=== PATIENT | female | born 1995 | race Caucasian/White ===

== ENCOUNTER 2017-11-12 16:24 | Emergency (ER) | payer BC ==
--- NOTE | 2017-11-12 17:09 | EDM.PDOC ---
ED HPI GENERAL MEDICAL PROBLEM - General Chief Complaint: Abdominal Pain Stated Complaint: BLOOD IN STOOL Time Seen by Provider: 11/12/17 16:46 Source of Information: Reports: Patient History Limitations: Reports: No Limitations - History of Present Illness INITIAL COMMENTS - FREE TEXT/NARRATIVE: Patient is a 22-year-old female who presents ED complaining of bleeding from the rectum with bowel movement. States this a.m. has had 2 episodes of diarrhea. First episode of diarrhea she had blood with wiping. There was scant at that time. The next time she had to utilize the bathroom she had some diarrhea but noticed more blood present. There is no pain with wiping. No pain with having a bowel movement. She has no history of hemorrhoids or anal fissures. She has no prior history as such. She states her stomach feels upset gurgly. There is no pain present. No recent sick exposures, ingestion of bad or questionable food, or out of country travel. She has no acid reflux. No nausea no vomiting, no dysuria, no fever, or change in appetite. Denies recent antibiotic use. Patient has no past medical history and is currently taking no medications. Patient does not smoke, alcohol use rarely, recreational drug use none stated. - Related Data Allergies Allergy/AdvReac Type Severity Reaction Status Date / Time amoxicillin Allergy Other Verified 11/12/17 16:37 codeine Allergy Lethargy Verified 11/12/17 16:37 Home Meds: Home Meds . [No Known Home Meds] 11/12/17 [History] Past Medical History - Past Health History Medical/Surgical History: Denies Medical/Surgical History Social & Family History - Tobacco Use Smoking Status *Q: Never Smoker - Caffeine Use Caffeine Use: Reports: Coffee, Soda - Recreational Drug Use Recreational Drug Use: No ED ROS GENERAL - Review of Systems Review Of Systems: See Below Constitutional: Reports: No Symptoms HEENT: Reports: No Symptoms Respiratory: Reports: No Symptoms Cardiovascular: Reports: No Symptoms GI/Abdominal: Reports: Abdominal Pain (No pain to this uncomfortable gurgling sensation present.), Bloody Stool, Diarrhea (2 episodes of loose stools), Vomiting. Denies: Constipation, Decreased Appetite, Distension, Flatus, Hematemesis : Reports: No Symptoms Musculoskeletal: Reports: No Symptoms Skin: Reports: No Symptoms Neurological: Reports: No Symptoms Psychiatric: Reports: No Symptoms ED EXAM, GI/ABD - Physical Exam Exam: See Below Exam Limited By: No Limitations General Appearance: Alert, WD/WN, No Apparent Distress Ears: Hearing Grossly Normal Nose: Normal Inspection Throat/Mouth: Normal Inspection, Normal Oropharynx, Normal Voice, No Airway Compromise Neck: Normal Inspection, Supple Respiratory/Chest: No Respiratory Distress, Lungs Clear, Normal Breath Sounds, No Accessory Muscle Use, Chest Non-Tender Cardiovascular: Normal Peripheral Pulses, Regular Rate, Rhythm, No Murmur GI/Abdominal Exam: Normal Bowel Sounds, Soft, Non-Tender, No Distention, Abnormal Bowel Sounds (Hyperactive) Rectal (Female) Exam: Heme - Stool. No: Hemorrhoids, Rectal Fissure, Tenderness Back Exam: Normal Inspection Extremities: Normal Inspection Neurological: Alert, Oriented, CN II-XII Intact, Normal Cognition, No Motor/ Sensory Deficits Psychiatric: Normal Affect, Normal Mood Skin Exam: Warm, Dry, Intact, Normal Color, No Rash Course - Vital Signs Last Recorded V/S: Last Vital Signs Temp 98.7 F 11/12/17 16:35 Pulse 128 H 11/12/17 16:35 Resp 20 11/12/17 16:35 BP 144/96 H 11/12/17 16:35 Pulse Ox 100 11/12/17 16:35 - Orders/Labs/Meds Labs: Laboratory Tests 11/12/17 11/12/17 11/12/17 Range/Units 17:00 17:15 17:15 WBC 15.39 H (3.98-10.04) K/mm3 RBC 4.96 (3.98-5.22) M/mm3 Hgb 14.2 (11.2-15.7) gm/L Hct 41.8 (34.1-44.9) % MCV 84.3 (79.4-94.8) fl MCH 28.6 (25.6-32.2) pg MCHC 34.0 (32.2-35.5) g/dl RDW Std Deviation 38.9 (36.4-46.3) fL Plt Count 357 (182-369) K/mm3 MPV 10.3 (9.4-12.3) fl Neut % (Auto) 63.7 (34.0-71.1) % Lymph % (Auto) 26.1 (19.3-51.7) % Gibson % (Auto) 7.9 (4.7-12.5) % Eos % (Auto) 1.5 (0.7-5.8) Baso % (Auto) 0.3 (0.1-1.2) % Neut # (Auto) 9.81 H (1.56-6.13) K/mm3 Lymph # (Auto) 4.02 H (1.18-3.74) K/mm3 Gibson # (Auto) 1.21 H (0.24-0.36) K/mm3 Eos # (Auto) 0.23 (0.04-0.36) K/mm3 Baso # (Auto) 0.05 (0.01-0.08) K/mm3 PT (8.0-13.0) SECONDS INR APTT (22-36) SECONDS Sodium 143 (136-145) mEq/L Potassium 3.5 (3.5-5.1) mEq/L Chloride 107 (98-107) mEq/L Carbon Dioxide 23 (21-32) mEq/L Anion Gap 16.5 H (5-15) BUN 9 (7-18) mg/dL Creatinine 0.8 (0.55-1.02) mg/dL Est Cr Clr Drug Dosing 81.82 mL/min Estimated GFR (MDRD) > 60 (>60) mL/min BUN/Creatinine Ratio 11.3 L (14-18) Glucose 111 H (74-106) mg/dL Calcium 9.2 (8.5-10.1) mg/dL Total Bilirubin 0.2 (0.2-1.0) mg/dL AST 13 L (15-37) U/L ALT 16 (14-59) U/L Alkaline Phosphatase 110 (46-116) U/L C-Reactive Protein < 0.2 (<1.0) mg/dL Total Protein 7.7 (6.4-8.2) g/dl Albumin 3.8 (3.4-5.0) g/dl Globulin 3.9 gm/dL Albumin/Globulin Ratio 1.0 (1-2) Lipase 198 (73-393) U/L HCG, Qual (NEGATIVE) Urine Color Yellow (Yellow) Urine Appearance Clear (Clear) Urine pH 7.0 (5.0-8.0) Ur Specific [place] 1.015 (1.005-1.030) Urine Protein Negative (Negative) Urine Glucose (UA) Negative (Negative) Urine Ketones Negative (Negative) Urine Occult Blood Negative (Negative) Urine Nitrite Negative (Negative) Urine Bilirubin Negative (Negative) Urine Urobilinogen 0.2 (0.2-1.0) Ur Leukocyte Esterase Trace H (Negative) Urine RBC 0-5 (0-5) /hpf Urine WBC 0-5 (0-5) /hpf Ur Epithelial Cells 0-5 (0-5) /hpf Urine Bacteria Few (FEW) /hpf Urine Mucus Not seen (FEW) /hpf C.difficile [id number] C. difficile Tox (PCR) 11/12/17 11/12/17 11/12/17 Range/Units 17:15 17:15 17:55 WBC (3.98-10.04) K/mm3 RBC (3.98-5.22) M/mm3 Hgb (11.2-15.7) gm/L Hct (34.1-44.9) % MCV (79.4-94.8) fl MCH (25.6-32.2) pg MCHC (32.2-35.5) g/dl RDW Std Deviation (36.4-46.3) fL Plt Count (182-369) K/mm3 MPV (9.4-12.3) fl Neut % (Auto) (34.0-71.1) % Lymph % (Auto) (19.3-51.7) % Gibson % (Auto) (4.7-12.5) % Eos % (Auto) (0.7-5.8) Baso % (Auto) (0.1-1.2) % Neut # (Auto) (1.56-6.13) K/mm3 Lymph # (Auto) (1.18-3.74) K/mm3 Gibson # (Auto) (0.24-0.36) K/mm3 Eos # (Auto) (0.04-0.36) K/mm3 Baso # (Auto) (0.01-0.08) K/mm3 PT 10.9 (8.0-13.0) SECONDS INR 1.00 APTT 30 (22-36) SECONDS Sodium (136-145) mEq/L Potassium (3.5-5.1) mEq/L Chloride (98-107) mEq/L Carbon Dioxide (21-32) mEq/L Anion Gap (5-15) BUN (7-18) mg/dL Creatinine (0.55-1.02) mg/dL Est Cr Clr Drug Dosing mL/min Estimated GFR (MDRD) (>60) mL/min BUN/Creatinine Ratio (14-18) Glucose (74-106) mg/dL Calcium (8.5-10.1) mg/dL Total Bilirubin (0.2-1.0) mg/dL AST (15-37) U/L ALT (14-59) U/L Alkaline Phosphatase (46-116) U/L C-Reactive Protein (<1.0) mg/dL Total Protein (6.4-8.2) g/dl Albumin (3.4-5.0) g/dl Globulin gm/dL Albumin/Globulin Ratio (1-2) Lipase (73-393) U/L HCG, Qual Negative (NEGATIVE) Urine Color (Yellow) Urine Appearance (Clear) Urine pH (5.0-8.0) Ur Specific [place] (1.005-1.030) Urine Protein (Negative) Urine Glucose (UA) (Negative) Urine Ketones (Negative) Urine Occult Blood (Negative) Urine Nitrite (Negative) Urine Bilirubin (Negative) Urine Urobilinogen (0.2-1.0) Ur Leukocyte Esterase (Negative) Urine RBC (0-5) /hpf Urine WBC (0-5) /hpf Ur Epithelial Cells (0-5) /hpf Urine Bacteria (FEW) /hpf Urine Mucus (FEW) /hpf C.difficile [id number] Presumptive negative C. difficile Tox (PCR) Negative - Re-Assessments/Exams Free Text/Narrative Re-Assessment/Exam: Picture provided by patient from last p.m. did show mild amount of blood within the toilet. Will obtain basic labs and studies include: CBC, chem 14, CRP, lipase, coag studies, UA, stool wbc's, Hemoccult testing, hCG, and 2 view of the abdomen flat and upright. X-ray of the abdomen did not reveal any concerning findings. 11/12/17 17:15 Hemoccult was negative for blood. 1756 Labs reviewed: White blood cell count 15.39, hemoglobin 14.2, platelet count 357, neutrophil percentage and lymphocyte percentage within normal limits. Neutrophil #9.81 which is high, lymphocyte #4.0 to which is high. C14 is essentially normal. CRP less than 0.2. Lipase 198. Stool WBCs were negative. C. difficile has been ordered. 1800 Reassessment, patient states with last bowel movement was low volume diarrhea. No blood present. 11/12/17 18:37 HCG negative. UA pending. 11/12/17 18:51 Reassessment, patient has no complaints. No additional episodes of diarrhea. Patient will be discharged home. Patient will be notified if remaining labs comeback positive. Will discharge patient home with instructions as documented. C-diff negative. Departure - Departure Time of Disposition: 18:55 Disposition: Home, Self-Care 01 Condition: Good Clinical Impression: Bright red blood per rectum, Stomach discomfort Diarrhea Qualifiers: Diarrhea type: unspecified type Qualified Code(s): R19.7 - Diarrhea, unspecified - Discharge Information Instructions: Diarrhea, Adult, [id number], Bloody Diarrhea Referrals: Una Peck MD [Primary Care Provider] - Forms: ED Department Discharge Additional Instructions: Unclear etiology of blood from rectum. Presume it is from the rectum maybe a internal hemorrhoid. WIll have you monitor for any changes. Push the fluids. Advance diet as tolerated. If you develop any new or worsening symptoms please return to the E.D. If remaining labs indicate bacterial infection present you will be notified.
--- NOTE | 2017-11-14 07:59 | CR ---
Abdomen: Supine and upright views of the abdomen were obtained. Comparison: No prior abdominal imaging. Bowel gas pattern appears normal. No abnormal calcifications or soft tissue abnormality is seen. No free air is seen. Slight scoliosis is noted. Impression: 1. Slight scoliosis. Two-view abdominal study is otherwise unremarkable. Diagnostic code #2
== END 2017-11-12 19:03 | disposition home or self-care (01) ==
LOC: EDBD 16:24 → MERGE 16:24 → SUPCPDRO 16:24 → JD.ED 16:24
DX: K62.5 Hemorrhage of anus and rectum (principal); R19.7 Diarrhea, unspecified; Z88.1 Allergy status to other antibiotic agents; Z88.5 Allergy status to narcotic agent
CPT/HCPCS: 36415; 74020; 74020-26; 80053; 81001; 82270; 83690; 84703; 85025; 85610; 85730; 86140; 87046; 87427; 87493; 89055; 99283; 99284-25